=== PATIENT | female | born 1940 | race Caucasian/White ===

== ENCOUNTER 2019-04-07 19:54 | Emergency (ER) | payer OTHER ==
[2019-04-07 20:12] VITALS: BP 202/90; PULSE 94; TEMP 97.6; BMI 29.8
--- NOTE | 2019-04-07 20:22 | PDOC ---
Documentation entered by Terese Alvarado SCRIBE, acting as scribe for Jessy Ching MD. Jessy Ching MD: This documentation has been prepared by the darionibe, Terese Alvarado SCRIBE, under my direction and personally reviewed by me in its entirety. I confirm that the documentation accurately reflects all work , treatment, procedures, and medical decision making performed by me. History of Present Illness - General Chief Complaint: Injury Stated Complaint: FALL History Source: Patient, Family Exam Limitations: No Limitations - History of Present Illness Initial Comments: 04/07/19 20:22 The patient is a 79-year-old female who presents to the emergency department s/ p a fall down the stairs. The patient was going down the garage stairs when she slipped and fell. The patient sustained an injury to her right elbow. Denies head injury or LOC. Denies numbness or tingling PAST MEDICAL HISTORY: daily use of ASA. PAST SURGICAL HISTORY: no significant history FAMILY HISTORY: no pertinent history SOCIAL HISTORY: Pt lives with family and is retired. Pt is visiting family in [place]. MEDICATIONS: reviewed ALLERGIES: As per nursing notes General: No fevers or chills, no weakness, no weight loss HEENT: No change in vision. No sore throat,. No ear pain CardioVascular: No chest pain or shortness of breath Respiratory:No cough, or wheezing. Gastrointestinal: no nausea, vomiting, diarrhea or constipation, No rectal bleeding Genitourinary: No dysuria, hematuria, or frequency Musculoskeletal: +right elbow pain with swelling. No other joint or muscle pain or swelling Neurologic: No headache, vertigo, dizziness or loss of consciousness Psychiatric: nor depression Skin: No rashes or easy bruising Endocrine: no increased thirst or abnormal weight change Allergic: no skin or latex allergy All other systems reviewed and normal General: Well-nourished well-developed individual, no acute distress Extremity: +right elbow marked, swollen, and tenderness with decreased range of motion secondary to pain or swelling. Neurovascularly intact distally. No bony tenderness of the forearm,wrist, or the shoulder. Head: Atramatic. This is an elderly 79-year-old female who slipped and fell landing on her right elbow. Patient comes in complaining of pain and swelling over the right elbow. Patient said she did not hit her head or pass out. Patient denies any other injury or trauma. X-ray of right elbow was done. X-ray shows an olecranon fracture otherwise no dislocation Head CT was negative for any acute pathology 04/07/19 22:42 Procedure note splint application: OCL posterior elbow splint applied neurovascular post-splint application intact. Patient's elbow put in a sling. Patient discharged with prescription for Percocet Past History - Past Medical History Allergies/Adverse Reactions: Allergies Allergy/AdvReac Type Severity Reaction Status Date / Time No Known Allergies Allergy Verified 04/07/19 19:56 Home Medications: Ambulatory Orders Amlodipine Besylate [Norvasc -] 5 mg PO DAILY 04/07/19 Aspirin [Aspirin EC] 81 mg PO DAILY 04/07/19 Atorvastatin Ca [Lipitor] 20 mg PO HS 04/07/19 Cholecalciferol (Vitamin D3) [Vitamin D3] 5,000 unit PO DAILY 04/07/19 Cranberry Fruit Extract [Ellura] 200 mg PO ASDIR 04/07/19 Losartan Potassium [Cozaar] 100 mg PO DAILY 04/07/19 Niacin*ER* [Niaspan (Non-Formulary)*ER* -] 500 mg PO ASDIR 04/07/19 Oxycodone HCl/Acetaminophen [Percocet 5-325 mg Tablet] 1 - 2 tab PO Q4H #20 tablet MDD 8 04/07/19 Vitamin B Complex [Super B-50 Complex] 1 each PO DAILY 04/07/19 Vitamin E 400 unit PO ASDIR 04/07/19 *Physical Exam - Vital Signs Last Vital Signs Temp Pulse Resp BP Pulse Ox 97.6 F 94 H 18 202/90 H 95 04/07/19 19:55 04/07/19 19:55 04/07/19 19:55 04/07/19 19:55 04/07/19 19:55 ED Treatment Course - RADIOLOGY Radiology Studies Ordered: Category Date Time Status HEAD CT WITHOUT CONTRAST [CT] Stat CT Scan 04/07/19 20:07 Ordered ELBOW-RIGHT [RAD] Stat Radiology 04/07/19 20:05 Ordered - Medications Given in the ED: ED Medications Discontinued Medications Generic Name Dose Route Start Last Admin Trade Name Freq PRN Reason Stop Dose Admin Oxycodone/Acetaminophen 1 combo 04/07/19 20:06 04/07/19 20:15 Percocet 5/325 - PO 04/07/19 20:07 1 combo ONCE ONE Administration *DC/Admit/Observation/Transfer Diagnosis at time of Disposition: Fracture of right elbow Qualifiers: Encounter type: initial encounter Fracture type: closed Qualified Code(s): S42.401A - Unspecified fracture of lower end of right humerus, initial encounter for closed fracture - Discharge Dispostion Disposition: HOME Condition at time of disposition: Good Decision to Admit order: No - Prescriptions Prescriptions: Oxycodone HCl/Acetaminophen [Percocet 5-325 mg Tablet] 1 - 2 tab PO Q4H #20 tablet MDD 8 - Referrals Referrals: Erwin Rincon MD [Staff Physician] - - Patient Instructions Printed Discharge Instructions: How to Use a Sling Additional Instructions: For the pain take Percocet one or 2 tablets every 4-6 hours as needed note the Percocet will make you drowsy so do not try to do anything that requires her concentration or drive while taking it. Wear the splint and sling until you see the orthopedist. Call the orthopedist at [phone] Tuesday morning for an appointment. Return to the emergency department immediately with ANY new, persistent or worsening symptoms. Continue any medications as previously prescribed by your physician. You should follow up with your primary doctor as soon as possible regarding today's emergency department visit. . Please make sure your doctor reviews the results of your emergency evaluation. Thank you for coming to the Emergency Department today for your care. It was a pleasure to see you today. Please note that your evaluation is INCOMPLETE until you follow-up with your doctor. - Post Discharge Activity
== END 2019-04-07 23:09 | disposition home or self-care (01) ==
LOC: FER 19:54
DX: S42.401A Unspecified fracture of lower end of right humerus, initial encounter for closed fracture (principal); W01.0XXA Fall on same level from slipping, tripping and stumbling without subsequent striking against object, initial encounter; Y93.89 Activity, other specified; Y92.89 Other specified places as the place of occurrence of the external cause
CPT/HCPCS: 70450-TC; 73070-TC-RT-FY; 99281-25